=== PATIENT | male | born 1950 | race Caucasian/White ===

== ENCOUNTER 2023-03-30 14:42 | Emergency (ER) | payer OTHER, SELFPAY ==
[2023-03-30 14:57] VITALS: BP 144/76; PULSE 62; RESP 18; TEMP 36.8; O2SAT 97; BMI 17.2
--- NOTE | 2023-03-30 15:31 | XR_ITS ---
WS: [id number] Exam: XR knee LT 3V* [id number] Date/Time of Exam: 03/30/2023 3:36 PM Reason For Exam: pain No priors. Total knee arthroplasty is noted. No sign of loosening or fracture. No joint effusion identified. IMPRESSION: 1. Intact total knee arthroplasty. No obvious complication.
--- NOTE | 2023-03-30 16:24 | ED_ITS ---
HPI - Extremity Problem General: Chief complaint: Extremity Problem,Nontraumatic Stated complaint: fall Time Seen by Provider: 03/30/23 16:16 Source: patient Mode of arrival: ambulatory Limitations: no limitations History of Present Illness: This patient made his way to the emergency department because he has complaints about his left knee. States that he has noticed over the past few weeks that his knee seems to want to give out on him from time to time. He states that when he stands and then tries to walk it will seem weak to him and have the giving out sensation is noted. He denies any prior injury to the development of these current symptoms. He has had a left knee arthroplasty done by the [facility] approximately 5 years ago without complication. He states he fell a couple of days ago when his knee gave way. He denies any injury as a result of that fall. He otherwise denies any constitutional complaints. Associated symptoms: Deny fever(s) or rash Review of Systems Const: Denies: fever(s) or chills Musc: Reports: extremity pain and joint pain; Denies: neck pain, back pain, extremity swelling, joint swelling, joint redness or joint warmth Skin/Breast: Denies: rash Neuro: Denies: numbness in extremities or weakness in extremities Physical Exam Narrative: EXAM NARRATIVE: The patient's alert and answers questions in a goal-directed voice. He appears to be somewhat unkept but in no acute distress makes good eye contact. Const: COMMON NORMALS: patient oriented x3 and alert GENERAL APPEARANCE: cooperative NUTRITIONAL APPEARANCE: thin and underweight HENMT: COMMON NORMALS: normocephalic and atraumatic HEAD & SCALP: normocephalic and atraumatic Eye: COMMON NORMALS: Equal, round and reactive pupils present, EOMs intact bilaterally and conjunctivae normal CONJUNCTIVA: Yes conjunctivae normal PUPIL: Yes Equal, round and reactive pupils present Neck/C-Spine: COMMON NORMALS: full ROM Resp: COMMON NORMALS: normal respiratory effort and No use of accessory muscles EFFORT & INSPECTION: Yes able to speak in complete sentences Cardio: COMMON NORMALS: Peripheral pulses 2+ throughout PERIPHERAL PULSES: Peripheral pulses 2+ throughout : COMMON NORMALS: Yes no CVA tenderness BLADDER/KIDNEY EXAM: Yes no CVA tenderness Back/Pelvis: COMMON NORMALS: no CVA tenderness and thoraco-lumbar ROM normal Extremity: COMMON NORMALS: capillary refill normal and no joint enlargement NARRATIVE EXTREMITY EXAM: Examination musculoskeletal reveals very thin individual with decreased muscle mass. With attention to his left lower extremity reveals the knee joint to be normal in appearance again notable for decreased muscle bulk which is consistent with the remainder of his musculoskeletal examination. There is no joint redness, effusion. Passive range of motion is full without restriction. He has intact patellar tendon function. There is no laxity to varus or valgus stress. There is no other abnormalities noted on his left lower extremity examination (other than examination was noted that he had insects crawling from his socks). Neuro: COMMON NORMALS: patient oriented x3, moves all extremities and no focal motor deficits SENSORIUM/ORIENTATION: Yes alert Psych: COMMON NORMALS: mental status grossly normal Skin: NARRATIVE SKIN EXAM: No lesions were noted. It was noted during examination that he had small insects that are crawling from his socks there was no evidence of other lesions or infestations on a cursory exam. Course Vital Signs: Vital signs: Vital Signs Temperature 98.3 F 03/30/23 14:57 Pulse Rate 62 03/30/23 14:57 Respiratory Rate 18 03/30/23 14:57 Blood Pressure 144/76 03/30/23 14:57 Pulse Oximetry 97 03/30/23 14:57 Oxygen Delivery Me thod Nasal Cannula 03/30/23 14:57 Oxygen Flow Rate 3 03/30/23 14:57 MDM - Extremity (Nontraumatic) Medical Decision Making This patient who presented emergency department because of knee pain that was nontraumatic in nature but he was 5 years status post total left knee arthroplasty. Complained of discomfort and instability of the knee. His clinical exam revealed a normal-appearing left knee. No evidence of effusion, erythema to suggest septic joint, no evidence to suggest fracture based upon radiographs. He has markedly decreased muscle mass which is likely the major contributing factor to his subjective sensation of instability to his knee given the fact that he has no anterior or posterior cruciate to provide stability and given that status post arthroplasty are more dependent upon muscle mass and bulk to stabilize her knee this case likely represents symptoms related to his paucity of the same. No evidence at this time to suggest a thromboembolic event etc. I discussed the lack of any concerning findings today but that he should follow-up with the [place] clinic to see if they can arrange physical therapy for him to see if they will be able to provide some additional strength to help stabilize his knee. We will give him a Lidoderm patch in the interim to help with symptoms. Discussed return precautions to include fever, joint effusion, joint redness etc. Both he and spouse voiced understanding. Medical Records No additional records available Lab Data I reviewed the patient's lab results. Discharge Plan Discharge Patient Disposition: Home Clinical Impression: Left knee pain Condition: Stable Prescriptions: New lidocaine [Lidoderm] 5 % adhesive patch,medicated 1 patch topical DAILY Qty: 15 1RF Rx Instructions: leave on most painful area for up to 12 hrs Discharge Orders: Discharge ED (Routine); Ordered 03/30/23 Ordered By: Wesley Montiel Referrals: NATHANIEL MONTOYA [Primary Care Provider] - Discharge Diet: Usual diet Discharge Activity: Increase activity as tolerated Patient Instructions: Opioid Safety, Pain Management Activity Restrictions/Additional Instructions: As we discussed while you are in the emergency department at this time there is no evidence of any disruption in your artificial knee joint etc. We do recommend calling the [place] clinic to arrange a follow-up for possible physical therapy referral for strength building etc. We have also provided a prescription for a Lidoderm patch to help with any discomfort. If you develop fever, swelling of the joint, redness to the joint or any other concerns return to this or the nearest emergency department. Coding Level of Care Code ED Counter Waitress/Waiter for Alis Asher
== END 2023-03-30 17:28 | disposition home or self-care (01) ==
PROVIDERS: Emergency Provider Emergency Medicine; PCP Family Medicine Geriatric Medicine
DX: M25.562 Pain in left knee (principal)
CPT/HCPCS: 73562; 99283